=== PATIENT | male | born 2000 ===

== ENCOUNTER 2024-02-26 07:14 | Outpatient (CLI) | payer OTHER ==
--- NOTE | 2024-02-26 11:55 | Ultrasound Report ---
Abdomen Limited CLINICAL HISTORY: 24 years of age, Male, RUQ PAIN. COMPARISON: None. TECHNIQUE: Ultrasound of the abdomen, right upper quadrant was performed. FINDINGS: Liver: 13.8 cm in length, within normal limits. Hepatic steatosis. 3.2 cm hypoechoic lesion in the ri ght hemiliver with internal vascularity. 2.9 cm area of focal fatty sparing versus underlying lesion about the elvis hepatis. The main portal vein demonstrate antegrade flow. Gallbladder: Filled with gallstones, limiting evaluation. The gallbladder wall measures 2 mm, within normal limits. Bile Ducts: No intra or extra hepatic biliary ductal dilatation. Common bile duct measures 4 mm. Pancreas: Not well visualized Right Kidney: 9.9 cm in length. Normal echogenicity. No hydronephrosis or renal stone. Ascites: Absent. Additional Findings: IMPRESSION: 1.Hepatic steatosis. 2 hypoechoic liver lesions, incompletely characterized. Recommend further evalua tion with CT or MR liver protocol. 2.Extensive cholelithiasis, limiting evaluation. No acute cholecystitis. Reviewed by: Ariana Paniagua MD on 02/26/2024 11:53 AM PDT Approved by: Ariana Paniagua MD on 02/26/2024 11:53 AM PDT Station ID: [id number]
== END 2024-02-26 07:15 | disposition home or self-care (01) ==
LOC: DI 07:14
PROVIDERS: ATTEND Student in an Organized Health Care Education/Training Program
DX: K76.0 Fatty (change of) liver, not elsewhere classified (principal); R93.2 Abnormal findings on diagnostic imaging of liver and biliary tract; K80.20 Calculus of gallbladder without cholecystitis without obstruction

== ENCOUNTER 2024-03-26 07:12 | Outpatient (CLI) | payer OTHER ==
[~2024-03-26 07:12] MED LIST: GADOTERATE MEGLUMINE 10 MMOL/20 ML VIAL ONE
[2024-03-26] MEDS: GADOTERATE MEGLUMINE 10 MMOL/20 ML VIAL IVP ONE (07:55)
--- NOTE | 2024-03-26 11:26 | MRI Report ---
PROCEDURE: Abdomen W/WO INDICATIONS: HEPATOMEGALY CONTRAST: CLARISCAN 16.6 ML TECHNIQUE: Coronal ultra fast SE, axial 2D spoiled GE in- and [id number]; axial breath-hold T2 fast SE. Dynam ic axial ultra fast GE during the administration of contrast; post-contrast coronal ultra fast GE or 2D spoiled GE with fat saturation from the hepatic dome to the iliac crests. Optional diffusion weig hted imaging and ADC may be performed. COMPARISON: Ultrasound abdomen 02/26/2024 FINDINGS: Image quality: Excellent. Lung bases and heart: Unremarkable. Liver: Mild diffuse hepatic steatosis with relative sparing in the gallbladder fossa. 2 focal areas o f fat sparing in the gallbladder fossa correspond to areas of hypoechogenic liver lesions seen on rec ent ultrasound. Normal size liver with a smooth margin. No enhancing abnormalities. Gallbladder and biliary tree: The gallbladder is entirely filled with numerous stones measuring about 2 to 3 mm. No intra or extra hepatic biliary dilatation and no visible choledocholithiasis. Spleen: No splenomegaly. Small inferior splenule. Pancreas: No pancreatic ductal dilation. Adrenals: No adrenal nodule. Kidneys and ureters: No hydronephrosis. No renal cystic lesion which requires follow up. No solid mas s. Bowel and peritoneum: Normal stomach and visible bowel loops. Lymph nodes: No central or retroperitoneal adenopathy. Vessels: Normal caliber abdominal aorta, IVC, and portal vein. Bones: No aggressive osseous abnormality. Other: No significant ventral hernia. IMPRESSION: Mild hepatic steatosis with 2 areas of focal fatty sparing in the gallbladder fossa seen as hypoechoi c lesions on ultrasound. These are benign. Extensive cholelithiasis without MR evidence of acute cholecystitis. Reviewed by: Sara Head MD on 03/26/2024 11:24 AM PDT Approved by: Sara Head MD on 03/26/2024 11:24 AM PDT Station ID: [id number]
== END 2024-03-26 07:13 | disposition home or self-care (01) ==
LOC: DI 07:12
PROVIDERS: ATTEND Student in an Organized Health Care Education/Training Program
DX: K76.0 Fatty (change of) liver, not elsewhere classified (principal)
CPT/HCPCS: 74183; A9575